=== PATIENT | male | born 1975 | race Caucasian/White ===

== ENCOUNTER 2020-09-16 09:12 | Emergency (ER) | payer BC ==
[~2020-09-16] VITALS: Ht 182 cm; Wt 90.7 kg
[~2020-09-16 09:12] MED LIST: AMOX1TAB63 PO; CEFD300C3 PO; HYDR-3714 PO; LIDO20SO20 PO; ONDA8TAB13 PO; TRAM50TA2 PO
--- NOTE | 2020-09-16 09:53 | ED Fall/Injury ---
General Chief Complaint: Chest Wall Stated Complaint: FELL RIGHT SIDED PAIN Nursing Triage Note: PT PRESENTS TO ED FROM HOME ACCOMPANIED BY SPOUSE WITH COMPLAINTS OF R SIDED RIB, UPPER ABDOMEN PAIN AFTER SLEEP WALKING LAST NIGHHT AND FALLING IN THE BATHROOM THEY WERE DOING CONSTRUCTION IN. PT DENIES LOC OR HITTING HEAD. PT HAD ABRASION TO R ARM AND R KNEE. Source: patient Exam Limitations: no limitations (TAWANA GUZMAN MED STUDENT) History of Present Illness Date Seen by Provider: Sep 16, 2020 Time Seen by Provider: 09:30 Initial Comments Pt is a 45yo male with no PMH who presents to the ED by private conveyance after a fall at home. He states he has been remodeling his bathroom, and apparently slept walked into the area last night around 11:30pm, and fell through the open floor landing on a floor joist. He does not think he hit his head. Reports 10/10 R lower chest pain worse with movement and deep breathing. Admits to drinking at least 5 drinks, 5 or more nights a week. Denies fever, chills, n/v or pain anywhere else. Location Injury Occurred: R lower chest Occurred: yesterday Severity: moderate Injuries/Pain Location: chest, abdomen Context: other (sleep-walking) Loss of Consciousness: no loss of consciousness Modifying Factors: Improves With Movement Associated Symptoms (Fall): Abdominal Pain (TAWANA GUZMANMED STUDENT) Initial Comments Patient admits to this provider that he drinks up to 10 beers in a day and drinks most days of the week. He denies symptoms of withdrawal. He has tenderness to palpation over the right anterior and lateral chest wall and soft portion of the upper abdomen. (WHITNEY PAGE MD) Allergies and Home Medications Allergies Coded Allergies: NKANo Known Allergies (Verified Allergy, Unknown, 07/09/06) Home Medications Amoxicillin/Clavulanate K 1 Tab.sr .12 H Tab.sr.12h, 2 EACH PO BID Prescribed by: EDEN SHELL on 08/22/14 1204 Cefdinir 300 Mg Capsule, 1 EACH PO BID Prescribed by: CHRIS BRINK on 08/23/14 1328 Lidocaine Hcl 20 Ml Soln, 20 ML PO QID PRN for PAIN Prescribed by: CHRIS BRINK on 08/23/14 1345 Ondansetron 8 Mg Tab.rapdis, 8 MG PO Q6H PRN for NAUSEA/VOMITING Prescribed by: CHRIS BRINK on 08/23/14 1345 Tramadol Hcl 50 Mg Tablet, 50 MG PO Q4H PRN for PAIN Prescribed by: CHRIS BRINK on 08/23/14 1345 Patient Home Medication List Home Medication List Reviewed: Yes (WHITNEY PAGE MD) Review of Systems Review of Systems Constitutional: No chills, No fever Eyes: No Symptoms Reported Ears, Nose, Mouth, Throat: no symptoms reported Respiratory: No cough, No short of breath; other (pain with respiration) Cardiovascular: chest pain (R sided lower ribcage); No edema Gastrointestinal: abdominal pain (RUQ); No nausea, No vomiting Genitourinary: no symptoms reported Musculoskeletal: No joint pain, No neck pain Skin: other (bruising to R side of abdomen and R arm ) Psychiatric/Neurological: Denies Numbness, Denies Weakness (TAWANA GUZMAN MED STUDENT) Psychiatric/Neurological: See HPI (WHITNEY PAGE MD) Past Fadweqo-Ttfcfh-Rbhncd Hx Past Med/Social Hx: Reviewed Nursing Past Med/Soc Hx (WHITNEY PAGE MD) Patient Social History Alcohol Use: Regular Use Smoking Status: Never a Smoker Recent Infectious Disease Expo: No (TAWANA GUZMAN MED STUDENT) Seasonal Allergies Seasonal Allergies: No (TAWANA GUZMAN MED STUDENT) Past Medical History Surgeries: Yes (BACK) Orthopedic Respiratory: No Cardiac: No Neurological: No Genitourinary: No Gastrointestinal: No Musculoskeletal: Yes Degenerate Disk Disease, Chronic Back Pain Endocrine: No HEENT: No Cancer: No Psychosocial: No Integumentary: No Blood Disorders: No (TAWANA GUZMAN MED STUDENT) Physical Exam Vital Signs Vital Signs - First Documented 09/16/20 09:23 Temp 36.6 Pulse 79 Resp 20 B/P (MAP) 159/82 (107) Pulse Ox 98 (WHITNEY PAGE MD) Vital Signs Capillary Refill : Less Than 3 Seconds (TAWANA GUZMAN MED STUDENT) Height, Weight, BMI Height: 6'0.00" Weight: 195lbs. oz. 88.730910xg; 27.00 BMI Method:Stated General Appearance: WD/WN, mild distress, other HEENT: PERRL/EOMI Neck: non-tender, full range of motion Cardiovascular: regular rate, rhythm, no edema, no murmur Respiratory: no respiratory distress, decreased breath sounds (RLL), other (tenderness to R anterior and lateral lower ribcage) Peripheral Pulses: 2+ Radial Pulses (R), 2+ Radial Pulses (L) Gastrointestinal: normal bowel sounds, soft, guarding (voluntary ); No rebound; tenderness (with palpation of RUQ) Back: no vertebral tenderness Extremities: normal range of motion, non-tender, no pedal edema, no calf tenderness Neurologic/Psychiatric: no motor/sensory deficits, alert, oriented x 3, other (appears tremulous/shaky) Skin: warm/dry, ecchymosis, other (eccymosis to R anteromedial arm and forearm, eccymosis and abrasions in RUQ of abdomen, small abrasion to R kneecap ) (TAWANA GUZMAN,MED STUDENT) [place] Coma Score Best Eye Response: (4) Open Spontaneously Best Verbal Response: (5) Oriented Best Motor Response: (6) Obeys Commands [place] Total: 15 (TAWANA GUMZAN,MED STUDENT) Progress/Results/Core Measures Results/Orders Lab Results Laboratory Tests Test 09/16/20 09:54 09/16/20 09:58 Range/Units White Blood Count 9.2 4.3-11.0 10^3/uL Red Blood Count 5.10 4.30-5.52 10^6/uL Hemoglobin 16.0 13.3-17.7 g/dL Hematocrit 49 40-54 % Mean Corpuscular Volume 95 80-99 fL Mean Corpuscular Hemoglobin 31 25-34 pg Mean Corpuscular Hemoglobin Concent 33 32-36 g/dL Red Cell Distribution Width 11.9 10.0-14.5 % Platelet Count 347 130-400 10^3/uL Mean Platelet Volume 9.5 9.0-12.2 fL Immature Granulocyte % (Auto) 0 % Neutrophils (%) (Auto) 66 42-75 % Lymphocytes (%) (Auto) 20 12-44 % Monocytes (%) (Auto) 11 0-12 % Eosinophils (%) (Auto) 2 0-10 % Basophils (%) (Auto) 0 0-10 % Neutrophils # (Auto) 6.1 1.8-7.8 10^3/uL Lymphocytes # (Auto) 1.9 1.0-4.0 10^3/uL Monocytes # (Auto) 1.0 0.0-1.0 10^3/uL Eosinophils # (Auto) 0.2 0.0-0.3 10^3/uL Basophils # (Auto) 0.0 0.0-0.1 10^3/uL Immature Granulocyte # (Auto) 0.0 0.0-0.1 10^3/uL Prothrombin Time 13.3 12.2-14.7 SEC INR Comment 1.0 0.8-1.4 Sodium Level 136 135-145 MMOL/L Potassium Level 4.2 3.6-5.0 MMOL/L Chloride Level 102 98-107 MMOL/L Carbon Dioxide Level 23 21-32 MMOL/L Anion Gap 11 5-14 MMOL/L Blood Urea Nitrogen 8 7-18 MG/DL Creatinine 0.90 0.60-1.30 MG/DL Estimat Glomerular Filtration Rate > 60 BUN/Creatinine Ratio 9 Glucose Level 109 H 70-105 MG/DL Calcium Level 9.3 8.5-10.1 MG/DL Corrected Calcium 9.1 8.5-10.1 MG/DL Total Bilirubin 1.1 H 0.1-1.0 MG/DL Aspartate Amino Transf (AST/SGOT) 24 5-34 U/L Alanine Aminotransferase (ALT/SGPT) 38 0-55 U/L Alkaline Phosphatase 81 40-136 U/L Total Protein 7.5 6.4-8.2 GM/DL Albumin 4.3 3.2-4.5 GM/DL Serum Alcohol < 10 <10 MG/DL Urine Color YELLOW Urine Clarity CLEAR Urine pH 7.5 5-9 Urine Specific [place] 1.015 L 1.016-1.022 Urine Protein NEGATIVE NEGATIVE Urine Glucose (UA) NEGATIVE NEGATIVE Urine Ketones NEGATIVE NEGATIVE Urine Nitrite NEGATIVE NEGATIVE Urine Bilirubin NEGATIVE NEGATIVE Urine Urobilinogen 0.2 < = 1.0 MG/DL Urine Leukocyte Esterase NEGATIVE NEGATIVE Urine RBC (Auto) NEGATIVE NEGATIVE Urine RBC NONE /HPF Urine WBC NONE /HPF Urine Crystals NONE /LPF Urine Bacteria NEGATIVE /HPF Urine Casts NONE /LPF Urine Mucus NEGATIVE /LPF Urine Culture Indicated NO (WHITNEY PAGE MD) My Orders Orders - WHITNEY PAGE MD Alcohol (09/16/20 09:44) Cbc With Automated Diff (09/16/20 09:44) Comprehensive Metabolic Panel (09/16/20 09:44) Protime With Inr (09/16/20 09:44) Ua Culture If Indicated (09/16/20 09:44) Ed Iv/Invasive Line Start (09/16/20 09:44) Ct Chest/Abdomen/Pelvis W (09/16/20 09:44) Iohexol Injection (Omnipaque 350 Mg/Ml 1 (09/16/20 10:15) Received Contrast (Hold Metformin- Contr (09/16/20 10:15) Sodium Chloride Flush (Catheter Flush Sy (09/16/20 10:15) Ns (Ivpb) (Sodium Chloride 0.9% Ivpb Bag (09/16/20 10:15) Ketorolac Injection (Toradol Injection) (09/16/20 12:00) (WHITNEY PAGE MD) Medications Given in ED Current Medications Medications Dose Ordered Sig/Nadia Route Start Time Stop Time Status Last Admin Dose Admin Iohexol 100 ml ONCE ONCE IV 09/16/20 10:15 09/16/20 10:28 DC 09/16/20 10:55 100 ML Sodium Chloride 10 ml NEEDED PRN IV 09/16/20 10:15 09/16/20 10:55 10 ML Sodium Chloride 100 ml ONCE ONCE IV 09/16/20 10:15 09/16/20 10:28 DC 09/16/20 10:55 80 ML (WHITNEY PAGE MD) Vital Signs/I&O 09/16/20 09:23 Temp 36.6 Pulse 79 Resp 20 B/P (MAP) 159/82 (107) Pulse Ox 98 (WHITNEY PAGE MD) Blood Pressure Mean: 107 Progress Progress Note : Progress Note Patient's injuries including pleuritic chest pain and tenderness to palpation over the right upper quadrant warrant CT evaluation. CT of the chest, abdomen and pelvis revealed no solid organ injuries. There was a small rib fracture identified on the ninth right rib. Patient declined any prescription pain medications. He did receive Toradol 15 mg IV prior to discharge. Discharge instructions were reviewed prior to dismissal. I had significant concerns about his quantity of alcohol consumption. We discussed the need for reduction or cessation of alcohol. (WHITNEY PAGE MD) Diagnostic Imaging Diagonstic Imaging: CT Plain Films/CT/US/NM/MRI: chest, abdomen, pelvis Comments CT chest, abdomen and pelvis viewed by me and report reviewed. Report below does not yet reflect a 9th right rib fracture. Fracture was confirmed after discussion with the radiologist. (WHITNEY PAGE MD) Departure Impression Primary Impression: Fall on same level Qualified Codes: W18.30XA - Fall on same level, unspecified, initial encounter Additional Impression: Closed rib fracture Qualified Codes: S22.31XA - Fracture of one rib, right side, initial encounter for closed fracture Disposition: HOME, SELF-CARE Condition: Improved Departure-Patient Inst. Decision time for Depature: 11:50 (WHITNEY PAGE MD) Referrals: KENTON WILDER DO (PCP/Family) Primary Care Physician Patient Instructions: Rib Fractures in Adults Add. Discharge Instructions: Exercise deep breathing at least 10 times per hour while awake. Set a timer on your phone to help you remember. Take Tylenol or generic acetaminophen up to 1000 mg every 6 hours as needed for pain. Add ibuprofen up to 600 mg every 6 hours as needed for intolerable pain. Some studies suggest ibuprofen delays bone healing, so minimize the amount of ibuprofen used. You may ice affected areas in 20-minute intervals to help reduce pain. Taper down on your alcohol consumption. Preferably, taper down to complete abstinence. If you are unable to reduce your alcohol consumption to a few drinks per week, please follow-up with a primary care provider or other subst ance abuse treatment resources. Call with questions or concerns. Return to the ER if you have worsening symptoms. All discharge instructions reviewed with patient and/or family. Voiced understanding. Medical Student Attestation and Attending Note: I have personally interviewed and examined this patient along with Tawana Guzman, MS 4. I have reviewed student documentation including history, physical, and assessments. I agree with the documentation except where otherwise noted. Exam: General: Alert, oriented, no acute distress, well developed HEENT: Normocephalic and atraumatic Heart: Regular rate and rhythm without murmur Lungs: Clear to auscultation bilaterally with normal effort Chest: Tenderness to palpation over the costal margin anteriorly and laterally on the right Abdomen: Soft, right upper quadrant tenderness, nondistended, normal bowel sounds Neuropsych: Alert, oriented, no focal deficits Skin: Minor abrasions on the right arm without significant tenderness or decreased range of motion (WHITNEY PAGE MD) TAWANA GUZMAN,MED STUDENT Sep 16, 2020 09:53 WHITNEY PAGE MD Sep 16, 2020 11:51
[2020-09-16 10:01] LABS: BASOPHILS % (AUTO) 0 % (0-10); EOSINOPHILS # (AUTO) 0.2 10^3/uL (0.0-0.3); EOSINOPHILS % (AUTO) 2 % (0-10); HEMATOCRIT 49 % (40-54); LYMPHOCYTES # (AUTO) 1.9 10^3/uL (1.0-4.0); LYMPHOCYTES % (AUTO) 20 % (12-44); MEAN CORPUSCULAR HEMOGLOBIN 31 pg (25-34); MEAN CORPUSCULAR HGB CONC 33 g/dL (32-36); MEAN CORPUSCULAR VOLUME 95 fL (80-99); MEAN PLATELET VOLUME 9.5 fL (9.0-12.2); MONOCYTES % (AUTO) 11 % (0-12); NEUTROPHILS # (AUTO) 6.1 10^3/uL (1.8-7.8); NEUTROPHILS % (AUTO) 66 % (42-75); PLATELET COUNT 347 10^3/uL (130-400); WHITE BLOOD COUNT 9.2 10^3/uL (4.3-11.0)
[2020-09-16 10:04] LABS: BILIRUBIN,URINE NEGATIVE (NEGATIVE); CLARITY,URINE CLEAR; COLOR,URINE YELLOW; GLUCOSE, URINE (UA) NEGATIVE (NEGATIVE); KETONES,URINE NEGATIVE (NEGATIVE); LEUKOCYTE ESTERASE ,URINE NEGATIVE (NEGATIVE); NITRITE,URINE NEGATIVE (NEGATIVE); PH,URINE 7.5 (5-9); PROTEIN,URINE NEGATIVE (NEGATIVE)
[2020-09-16 10:08] LABS: ALBUMIN 4.3 GM/DL (3.2-4.5)
[2020-09-16 10:09] LABS: CHLORIDE 102 MMOL/L (98-107); POTASSIUM 4.2 MMOL/L (3.6-5.0); SODIUM 136 MMOL/L (135-145)
[2020-09-16 10:10] LABS: CALCIUM 9.3 MG/DL (8.5-10.1)
[2020-09-16 10:11] LABS: GLUCOSE 109 MG/DL (70-105); TOTAL PROTEIN 7.5 GM/DL (6.4-8.2)
[2020-09-16 10:12] LABS: CARBON DIOXIDE 23 MMOL/L (21-32)
[2020-09-16 10:12] LABS: BACTERIA,URINE NEGATIVE /HPF
[2020-09-16 10:13] LABS: BILIRUBIN,TOTAL 1.1 MG/DL (0.1-1.0)
[2020-09-16 10:14] LABS: ALKALINE PHOSPHATASE 81 U/L (40-136)
[2020-09-16 10:15] LABS: GFR ESTIMATED > 60; PROTHROMBIN TIME PATIENT 13.3 SEC (12.2-14.7)
[2020-09-16] MEDS ORDERED: HOLD METFORMIN - RECEIVED CONTRAST 20 ML VIAL IV SCH (10:15)
[2020-09-16] MEDS ORDERED: CATHETER FLUSH 10 ML SYR IV PRN (10:15)
[2020-09-16] MEDS ORDERED: NS 100 ML (IVPB) BAG IV ONE (10:15)
[2020-09-16] MEDS ORDERED: IOHEXOL 350 MG/ML 100 ML (OMNIPAQUE 350) VIAL IV ONE (10:15)
[2020-09-16 10:16] LABS: BUN/CREATININE RATIO 9
[2020-09-16 10:18] LABS: ALANINE AMINOTRANSFERASE 38 U/L (0-55)
--- NOTE | 2020-09-16 11:16 | Diagnostic Imaging Report ---
PROCEDURE: CT chest, abdomen, and pelvis with contrast. TECHNIQUE: Multiple contiguous axial images were obtained through the chest, abdomen, and pelvis after the administration of intravenous contrast. Auto Exposure Controls were utilized during the CT exam to meet ALARA standards for radiation dose reduction. INDICATION: Fall with pain in the lateral right ribs as well as upper abdomen. COMPARISON: No prior studies are available for comparison. FINDINGS: CT CHEST: No mediastinal hematoma or great vessel injury is identified. No pericardial or pleural fluid is identified. No pulmonary contusion or pneumothorax is identified. No displaced rib fracture is seen. There is a nondisplaced fracture of the right posterior lateral 9th rib. : Unremarkable CT of the chest apart from right 9th rib fracture. CT ABDOMEN AND PELVIS: No focal liver or splenic laceration is seen. The gallbladder and pancreas are unremarkable. No adrenal or renal injury is identified. Aorta is nonaneurysmal. The bowel loops are normal in caliber. There is no obstruction. There is no free fluid or evidence of hemoperitoneum. Appendix is unremarkable. The bladder and prostate are unremarkable. There are postop changes in the lumbar spine from posterior instrumented fusion. No acute bony abnormality is detected. IMPRESSION: No evidence of abdominal or pelvic visceral injury. Dictated by: Dictated on workstation # [id number]
[2020-09-16] MEDS ORDERED: KETOROLAC 30 MG/ML VIAL IVP ONE (12:00)
[2020-09-16 12:12] VITALS: BP 141/99
== END 2020-09-16 12:16 | disposition home or self-care (01) ==
LOC: EDUNIT# 09:12 → ER 09:15
DX: S22.31XA Fracture of one rib, right side, initial encounter for closed fracture (principal); S50.11XA Contusion of right forearm, initial encounter; S30.1XXA Contusion of abdominal wall, initial encounter; S80.211A Abrasion, right knee, initial encounter; I10 Essential (primary) hypertension; W18.30XA Fall on same level, unspecified, initial encounter
CPT/HCPCS: 71260; 74177; 80053; 81000; 85025; 85610; 99284; G0480; 36415; 80320

== ENCOUNTER → 2021-03-29 | Outpatient (CLI) | payer BC ==
--- NOTE | 2021-03-29 09:42 | Diagnostic Imaging Report ---
PROCEDURE: MRI lumbar spine. TECHNIQUE: Multiplanar, multisequence MRI of the lumbar spine was performed without contrast. DATE: March 29, 2021. COMPARISON: CT chest, abdomen, and pelvis September 16, 2020. INDICATION: 46-year-old male, chronic low back pain. FINDINGS: There is anterior spinal fusion hardware at L3-L4 and L4-L5 as well as posterior spinal fusion hardware spanning L3-L5. There is disc spacer material at L3-L4 and L4-L5. There is prominent Modic endplate degenerative related change adjacent to the L4-L5 disc space. There is no identified compression deformity or fracture. There is no evidence of a diffuse marrow infiltrating or replacing process. The visualized cord and conus medullaris is unremarkable and terminates at the L1-L2 level. L5-S1 is labeled as having hypoplastic disc space. L1-L2: There is no disc bulge. The facet joints and ligamentum flavum are unremarkable. There is no foraminal narrowing. There is no spinal canal stenosis. L2-L3: There is minimal diffuse disc bulge. There are mild right facet degenerative changes. There is no foraminal narrowing. There is no spinal canal stenosis. L3-L4: There is no disc bulge. The facet joints and ligamentum flavum are unremarkable. There is no foraminal narrowing. There is no spinal canal stenosis. L4-L5: There is no disc bulge. There are bilateral laminectomy changes. There is no foraminal narrowing. There is no spinal canal stenosis. L5-S1: There is no disc bulge. The facet joints and ligamentum flavum are unremarkable. There is no foraminal narrowing. There is no spinal canal stenosis. IMPRESSION: 1. The L5-S1 disc space is labeled is hypoplastic. There is spinal fusion hardware spanning L3-L5. 2. Minimal diffuse disc bulge and mild right facet degenerative changes at L2-L3 without foraminal or spinal stenosis. 3. No focal concerning bone lesion. Dictated by: Dictated on workstation # [id number]
== END ==
LOC: RAD 08:45
PROVIDERS: ATTEND Physician Assistant
DX: M47.26 Other spondylosis with radiculopathy, lumbar region (principal); M51.16 Intervertebral disc disorders with radiculopathy, lumbar region; Z98.1 Arthrodesis status
CPT/HCPCS: 72148

== ENCOUNTER 2021-04-27 08:01 | Outpatient (RCR) | payer BC | END 2021-05-25 15:50 | disposition home or self-care (01) | PROVIDERS: ATTEND Orthopaedic Surgery Orthopaedic Surgery of the Spine | DX: M47.816 Spondylosis without myelopathy or radiculopathy, lumbar region (principal); M46.1 Sacroiliitis, not elsewhere classified ==